=== PATIENT | female | born 1965 | race Asian ===

== ENCOUNTER → 2024-09-15 | Day surgery (SDC) | payer BC ==
[2024-09-13 13:09] LABS: ANION GAP 13.2 mmol/L (8-16); CALCIUM 9.5 mg/dL (8.4-10.2); CREATININE, SERUM 0.69 mg/dL (0.57-1.11); POTASSIUM 4.2 mmol/L (3.5-5.1)
[~2024-09-15] MED LIST: ACETAMINOPHEN 1000 MG/100 ML 100 ML IV ONE; DEXAMETHASONE SOD PHOS INJ 4 MG/ML SDV ONE; FENTANYL CITRATE/PF 100MCG/2 ML INJ ONE; LIDOCAINE HCL 2% LOCAL INJ 5 ML SDV VIAL INJ ONE; NEURONTIN300 MG PO; ONDANSETRON HCL INJ 2MG/ML 2ML 2 MG/ML VIAL ONE; PROPOFOL IV EMULSION 10 MG/ML 20 ML VIAL ONE; SIMVASTATIN40 MG PO; SUCCINYLCHOLINE CHLORIDE 20 MG/ML 10ML VIAL ONE; VITAMIN B COMP1 EACH PO; VITAMIN D31250 MCG PO
[2024-09-15] MEDS: LACTATED RINGER'S 1,000 ML ONE (05:58)
[2024-09-15] MEDS: CEFAZOLIN SODIUM 2 GM ONE (05:58)
[2024-09-15 07:42] VITALS: TEMP 97.9
[2024-09-15 08:35] VITALS: BP 131/85; PULSE 62; RESP 16; O2SAT 99
== END | disposition home or self-care (01) ==
LOC: OR 05:45 → EDBD 07:00
PROVIDERS: ATTEND Podiatrist Foot & Ankle Surgery
DX: G57.51 Tarsal tunnel syndrome, right lower limb (principal); I83.91 Asymptomatic varicose veins of right lower extremity; E78.5 Hyperlipidemia, unspecified; K21.9 Gastro-esophageal reflux disease without esophagitis; Z01.810 Encounter for preprocedural cardiovascular examination; Z01.812 Encounter for preprocedural laboratory examination; Z79.899 Other long term (current) drug therapy
CPT/HCPCS: 28035; 36415; 80048; 93005; J0131; J0330; J0690; J1100; J2003; J2405; J2704; J3010; J7121